=== PATIENT | male | born 1965 | race American Indian/Alaskan Native ===

== ENCOUNTER 2021-01-21 00:43 | Emergency (ER) | payer SELFPAY ==
[2021-01-21 01:19] LABS: Basophils # (Auto) 0.1 K/mm3 (0.0-0.1); Basophils % (Auto) 0.5 % (0.0-1.8); Eosinophils # (Auto) 0.1 K/mm3 (0.0-0.4); Eosinophils % (Auto) 0.7 % (0.0-4.3); Hematocrit 48.9 % (35.5-45.6); Hemoglobin 16.6 gm/dl (11.8-15.2); Lymphocytes # (Auto) 3.7 K/mm3 (1.2-5.4); Lymphocytes % (Auto) 33.6 % (13.4-35.0); Mean Corpuscular HGB Conc 34 % (32-34); Mean Corpuscular Volume 95 fl (84-94); Monocytes # (Auto) 0.8 K/mm3 (0.0-0.8); Monocytes % (Auto) 7.3 % (0.0-7.3); Platelet Count 309 K/mm3 (140-440); Red Blood Count 5.16 M/mm3 (3.65-5.03); Red Cell Distribution Width 13.7 % (13.2-15.2)
[2021-01-21] MEDS ORDERED: ONDANSETRON 4 MG ODT TAB PO ONE (01:25)
[2021-01-21] MEDS ORDERED: ONDANSETRON 4 MG ODT TAB ONE (01:25)
[2021-01-21 01:42] LABS: Alanine Aminotransferase 24 units/L (7-56); Albumin 4.9 g/dL (3.9-5); BUN/Creatinine Ratio 16; Blood Urea Nitrogen 21 mg/dL (9-20); Calcium 10.2 mg/dL (8.4-10.2); Hemolysis Index 12
[2021-01-21] MEDS ORDERED: MORPHINE 4 MG/1 ML INJ IV ONE (08:15)
--- NOTE | 2021-01-21 08:22 | Emergency Department Report ---
ED General Adult HPI - General Chief complaint: Abdominal Pain Stated complaint: ABD PAIN Time Seen by Provider: 01/21/21 08:05 Source: patient Mode of arrival: Ambulatory Limitations: No Limitations - History of Present Illness Initial comments: The patient presents to the emergency department the chief complaint of abdominal pain that started 2 days ago. Patient states she has not had a bowel movement in 2 days. Patient complains of nausea and vomiting. Patient denies any previous history of abdominal surgeries. Patient denies chest pain, shor tness breath, or headache. -: Sudden Location: abdomen Radiation: non-radiation Severity scale (0 -10): 5 Quality: sharp Consistency: constant Improves with: none Worsens with: none Associated Symptoms: nausea/vomiting Treatments Prior to Arrival: none - Related Data Previous Rx's Medication Instructions Recorded Last Taken Type Cyclobenzaprine [Flexeril] 10 mg PO TID #12 tab 08/09/13 Unknown Rx Hydrocodone Bit/Acetaminophen 1 each PO Q6H PRN #12 tablet 08/09/13 Unknown Rx [Lortab 5-500 Tablet] Ketorolac [Toradol] 10 mg PO Q6H PRN #15 tablet 11/14/18 Unknown Rx methOCARBAMOL [Robaxin] 750 mg PO Q8H PRN #21 tablet 11/14/18 Unknown Rx Esomeprazole Magnesium [NexIUM] 40 mg PO QDAY #30 capsule. 01/21/21 Unknown Rx Ondansetron [Zofran Odt] 4 mg PO Q4HR PRN #20 tab.rapdis 01/21/21 Unknown Rx traMADoL [Ultram] 50 mg PO Q6HR PRN #24 tablet 01/21/21 Unknown Rx Allergies Allergy/AdvReac Type Severity Reaction Status Date / Time No Known Allergies Allergy Unverified 08/09/13 14:34 ED Review of Systems ROS: Stated complaint: ABD PAIN Other details as noted in HPI Comment: All other systems reviewed and negative Constitutional: denies: chills, fever Eyes: denies: eye pain, eye discharge, vision change ENT: denies: ear pain, throat pain Respiratory: denies: cough, shortness of breath, wheezing Cardiovascular: denies: chest pain, palpitations Endocrine: no symptoms reported Gastrointestinal: abdominal pain. denies: nausea, diarrhea Genitourinary: denies: urgency, dysuria Musculoskeletal: denies: back pain, joint swelling, arthralgia Skin: denies: rash, lesions Neurological: denies: headache, weakness, paresthesias Psychiatric: denies: anxiety, depression Hematological/Lymphatic: denies: easy bleeding, easy bruising ED Past Medical Hx - Past Medical History Previous Medical History?: Yes Hx GERD: Yes - Surgical History Past Surgical History?: No - Social History Smoking Status: Current Every Day Smoker Substance Use Type: None - Medications Home Medications: Home Medications Medication Instructions Recorded Confirmed Last Taken Type Cyclobenzaprine [Flexeril] 10 mg PO TID #12 tab 08/09/13 Unknown Rx Hydrocodone Bit/Acetaminophen 1 each PO Q6H PRN #12 tablet 08/09/13 Unknown Rx [Lortab 5-500 Tablet] Ketorolac [Toradol] 10 mg PO Q6H PRN #15 tablet 11/14/18 Unknown Rx methOCARBAMOL [Robaxin] 750 mg PO Q8H PRN #21 tablet 11/14/18 Unknown Rx Esomeprazole Magnesium [NexIUM] 40 mg PO QDAY #30 capsule.dr 01/21/21 Unknown Rx Ondansetron [Zofran Odt] 4 mg PO Q4HR PRN #20 tab.rapdis 01/21/21 Unknown Rx traMADoL [Ultram] 50 mg PO Q6HR PRN #24 tablet 01/21/21 Unknown Rx ED Physical Exam - General Limitations: No Limitations General appearance: alert, in no apparent distress - Head Head exam: Present: atraumatic, normocephalic - Eye Eye exam: Present: normal appearance, PERRL, EOMI - ENT ENT exam: Present: mucous membranes moist - Neck Neck exam: Present: normal inspection - Respiratory Respiratory exam: Present: normal lung sounds bilaterally. Absent: respiratory distress - Cardiovascular Cardiovascular Exam: Present: regular rate, normal rhythm. Absent: systolic murmur, diastolic murmur, rubs, gallop - GI/Abdominal GI/Abdominal exam: Present: soft, tenderness, normal bowel sounds. Absent: distended - Rectal Rectal exam: Present: deferred - Extremities Exam Extremities exam: Present: normal inspection - Back Exam Back exam: Present: normal inspection - Neurological Exam Neurological exam: Present: alert, oriented X3, CN II-XII intact. Absent: motor sensory deficit - Psychiatric Psychiatric exam: Present: normal affect, normal mood - Skin Skin exam: Present: warm, dry, intact, normal color. Absent: rash ED Course Vital Signs 01/21/21 01/21/21 01/21/21 00:47 04:47 10:35 Temperature 97.7 F 98.7 F Pulse Rate 108 H 71 61 Respiratory 20 18 15 Rate Blood Pressure 141/87 151/103 135/83 [Right] O2 Sat by Pulse 99 100 100 Oximetry ED Medical Decision Making - Lab Data Result diagrams: 01/21/21 01:04 01/21/21 01:04 Lab Results 01/21/21 01/21/21 01/21/21 Range/Units 01:04 01:04 01:04 WBC 11.0 (4.5-11.0) K/mm3 RBC 5.16 H (3.65-5.03) M/mm3 Hgb 16.6 H (11.8-15.2) gm/dl Hct 48.9 H (35.5-45.6) % MCV 95 H (84-94) fl MCH 32 (28-32) pg MCHC 34 (32-34) % RDW 13.7 (13.2-15.2) % Plt Count 309 (140-440) K/mm3 Lymph % (Auto) 33.6 (13.4-35.0) % Shannon % (Auto) 7.3 (0.0-7.3) % Eos % (Auto) 0.7 (0.0-4.3) % Baso % (Auto) 0.5 (0.0-1.8) % Lymph # (Auto) 3.7 (1.2-5.4) K/mm3 Shannon # (Auto) 0.8 (0.0-0.8) K/mm3 Eos # (Auto) 0.1 (0.0-0.4) K/mm3 Baso # (Auto) 0.1 (0.0-0.1) K/mm3 Seg Neutrophils % 57.9 (40.0-70.0) % Seg Neutrophils # 6.4 (1.8-7.7) K/mm3 Sodium 136 L (137-145) mmol/L Potassium 3.7 (3.6-5.0) mmol/L Chloride 94.7 L (98-107) mmol/L Carbon Dioxide 24 (22-30) mmol/L Anion Gap 21 mmol/L BUN 21 H (9-20) mg/dL Creatinine 1.3 (0.8-1.3) mg/dL Estimated GFR > 60 ml/min BUN/Creatinine Ratio 16 % Glucose 170 H (75-100) mg/dL Calcium 10.2 (8.4-10.2) mg/dL Total Bilirubin 0.80 (0.1-1.2) mg/dL AST 25 (5-40) units/L ALT 24 (7-56) units/L Alkaline Phosphatase 65 (35-129) units/L Total Protein 8.2 (6.3-8.2) g/dL Albumin 4.9 (3.9-5) g/dL Albumin/Globulin Ratio 1.5 % Lipase 14 (13-60) units/L - Radiology Data Radiology results: report reviewed - Medical Decision Making Discussed results with patient Critical care attestation.: If time is entered above; I have spent that time in minutes in the direct care of this critically ill patient, excluding procedure time. ED Disposition Clinical Impression: Hernia of abdominal wall, Hiatal hernia, GERD (gastroesophageal reflux disease) Disposition: - TO HOME OR SELFCARE Is pt being admited?: No Does the pt Need Aspirin: No Condition: Stable Instructions: Hiatal Hernia, Hernia, Adult, Gastroesophageal Reflux Disease, Adult Additional Instructions: Please follow-up for findings of the esophagus as we discussed secondary to your acid reflux disease. Chronic GERD can leave to esophageal changes such as Yuen's esophagus and esophageal cancer as we discussed. Please stop taking your Prilosec and take the medications that I have prescribed Prescriptions: Esomeprazole Magnesium [NexIUM] 40 mg PO QDAY #30 capsule. Referrals: NICO MG MD [Primary Care Provider] - 3-5 Days DENILSON RAHMAN MD [Staff Physician] - 3-5 Days ALANNA ROSE DO [Staff Physician] - 3-5 Days Time of Disposition: 11:40
--- NOTE | 2021-01-21 10:04 | Cat Scan Report ---
CT ABDOMEN AND PELVIS WITH CONTRAST INDICATION / CLINICAL INFORMATION: abdominal pain. TECHNIQUE: Axial CT images were obtained through the abdomen and pelvis after IV contrast. All CT sc ans at this location are performed using CT dose reduction for ALARA by means of automated exposure c ontrol. COMPARISON: None available. FINDINGS: LOWER CHEST: Small hiatal hernia with mild symmetric esophageal thickening distally. LIVER: No significant abnormality. GALLBLADDER: No significant abnormality. BILE DUCTS: No significant abnormality. PANCREAS: No significant abnormality. SPLEEN: No significant abnormality. ADRENALS: No significant abnormality. RIGHT KIDNEY / URETER: Small cysts. LEFT KIDNEY / URETER: Small cysts. STOMACH / SMALL BOWEL: No significant abnormality. COLON: Noninflamed diverticulosis at the descending/sigmoid colons. APPENDIX: No significant abnormality. PERITONEUM: No free fluid. Mildly complex, fat-containing ventral hernia. No fluid collection. LYMPH NODES: No significant adenopathy. VASCULAR STRUCTURES: No significant abnormality. URINARY BLADDER: No significant abnormality. REPRODUCTIVE ORGANS: No significant abnormality. ADDITIONAL FINDINGS: None. SKELETAL SYSTEM: No significant abnormality. IMPRESSION: 1. Negative for obstruction or localized inflammation. 2. Noninflamed colonic diverticulosis. 3. Complex fat-containing ventral hernia. 4. Small hiatal hernia with associated distal esophageal thickening likely due to peptic disease. Signer Name: Yazan Gruber MD Signed: 01/21/2021 10:00 AM Workstation Name: [email or web address]
[2021-01-21 10:35] VITALS: BP 135/83
== END 2021-01-21 12:30 | disposition home or self-care (01) ==
LOC: ED 00:43
DX: K46.9 Unspecified abdominal hernia without obstruction or gangrene (principal); K21.9 Gastro-esophageal reflux disease without esophagitis; K44.9 Diaphragmatic hernia without obstruction or gangrene; F17.200 Nicotine dependence, unspecified, uncomplicated; Z79.899 Other long term (current) drug therapy
CPT/HCPCS: 36415; 74177; 80053; 83690; 85025; 96374; 99284; J2270; Q9967; Q0162